=== PATIENT | male | born 1950 | race Caucasian/White ===

== ENCOUNTER → 2020-08-03 | Outpatient (CLI) | payer MEDICARE, OTHER ==
--- NOTE | 2020-08-03 13:58 | REP ---
INDICATION: PAIN IN LEFT SHOULDER COMPARISON: None. TECHNIQUE: Three views left shoulder. FINDINGS: There is no evidence of acute fracture, dislocation, or intrinsic bone disease.There is minor narrowing of the acromioclavicular and glenohumeral joints. IMPRESSION: No fracture or dislocation. Minor joint space narrowing acromioclavicular and glenohumeral joints. <Electronically signed by Michael Campuzano > 08/03/20 [id number]
== END ==
LOC: M LAB 13:43
PROVIDERS: ATTEND Family Medicine
DX: M25.512 Pain in left shoulder (principal)

== ENCOUNTER → 2020-08-18 | Outpatient (CLI) | payer MEDICARE, OTHER ==
--- NOTE | 2020-08-18 16:29 | REP ---
INDICATION: LT SHOULDER PAIN DECREASED ROM. COMPARISON: Radiographs 08/03/2020. TECHNIQUE: Coronal oblique T1, T2 fat sat, sagittal oblique T2 fat sat, axial T2 fat sat, gradient echo. FINDINGS: Rotator cuff: There is a partial undersurface tear of the supraspinatus tendon. There is mild tendinopathy/tendinitis of the subscapularis tendon. Acromioclavicular joint: There are mild hypertrophic changes at the acromioclavicular joint. Acromion: Type 1. Biceps Tendon: In bicipital groove, there is mild fluid surrounding the biceps tendon which may represent mild tenosynovitis.. Hill Sach's deformity: None. Deltoid muscle: No abnormal signal. Biceps labral complex: There is a tear at the base of the biceps labral complex. Labrum: The entire labrum is torn, superiorly, inferiorly, anteriorly and posteriorly. Cartilage: There is moderate chondromalacia at the glenohumeral joint. Bone marrow: No abnormal signal. Joint fluid: There is a small joint effusion. IMPRESSION: Partial undersurface tear supraspinatus tendon. Mild tendinopathy/tendinitis of the subscapularis tendon. Mild hypertrophic degenerative changes acromioclavicular joint. There is a tear at the base of the biceps labral complex. The entire labrum appears torn. Small joint effusion. <Electronically signed by Michael Campuzano > 08/18/20 [id number]
== END ==
LOC: M RAD 13:09
PROVIDERS: ATTEND Nurse Practitioner Family
DX: M25.612 Stiffness of left shoulder, not elsewhere classified (principal); M25.461 Effusion, right knee; M75.112 Incomplete rotator cuff tear or rupture of left shoulder, not specified as traumatic

== ENCOUNTER → 2020-10-30 | Outpatient (CLI) | payer MEDICARE, OTHER | LOC: M LABSMTC 11:02 | PROVIDERS: ATTEND Ophthalmology | DX: Z01.812 Encounter for preprocedural laboratory examination (principal); Z20.822 Contact with and (suspected) exposure to COVID-19 ==

== ENCOUNTER → 2020-11-10 | Outpatient (CLI) | payer MEDICARE, OTHER | LOC: M LABSMTC 10:04 | PROVIDERS: ATTEND Ophthalmology | DX: Z01.812 Encounter for preprocedural laboratory examination (principal); Z20.822 Contact with and (suspected) exposure to COVID-19 ==

== ENCOUNTER → 2021-07-22 | Outpatient (CLI) | payer MEDICARE, OTHER | LOC: M RAD 09:32 | PROVIDERS: ATTEND Family Medicine | DX: R05.9 Cough, unspecified (principal) ==

== ENCOUNTER → 2022-01-26 | Outpatient (CLI) | payer MEDICARE, OTHER ==
[2022-01-26 12:44] LABS: BASO # 0.1 10^3/uL (0.0-0.2); BASO % 0.8 % (0.0-1.0); EOS # 0.2 10^3/uL (0.0-0.5); EOS % 3.8 % (0.0-3.0); HEMOGLOBIN 15.8 g/dl (13.5-17.5); LYMPH % 30.7 % (24.0-44.0); MEAN CORPUSCULAR HEMOGLOBIN 29.8 pg (27.0-33.0); MEAN CORPUSCULAR HGB CONC 31.6 g/dl (32.0-36.5); MEAN CORPUSCULAR VOLUME 94.2 fl (80.0-96.0); MONO # 0.8 10^3/uL (0.0-0.8); MONO % 12.8 % (2.0-8.0); NEUTROPHILS # 3.3 10^3/uL (1.5-8.5); NEUTROPHILS % 51.6 % (36.0-66.0); PLATELET COUNT, AUTOMATED 207 10^3/uL (150-450); RED BLOOD COUNT 5.31 10^6/uL (4.30-6.10); WHITE BLOOD COUNT 6.4 10^3/uL (4.0-10.0)
[2022-01-26 13:08] LABS: THYROID STIMULATING HORMONE 1.509 uIU/ML (0.55-4.78)
[2022-01-26 13:09] LABS: ALBUMIN 3.8 G/DL (3.2-5.2); ALKALINE PHOSPHATASE 52 U/L (46-116); ALT/SGPT 18 U/L (7.0-40); AST/SGOT 21 U/L (<34); BILIRUBIN,TOTAL 0.7 MG/DL (0.3-1.2); BLOOD UREA NITROGEN 19 MG/DL (9-23); CALCIUM LEVEL 9.7 MG/DL (8.3-10.6); CARBON DIOXIDE LEVEL 28 MMOL/L (20-31); CHLORIDE LEVEL 102 MMOL/L (98-107); CHOLESTEROL LEVEL 184 MG/DL (<200); CHOLESTEROL RISK RATIO 2.42 (<5); CREATININE FOR GFR 1.19 MG/DL (0.70-1.30); GLOMERULAR FILTRATION RATE > 60.0 (>42); GLUCOSE, FASTING 102 MG/DL (74-106); LDL CHOLESTEROL 82.4 MG/DL (<100); NON-HDL-C 108 MG/DL; POTASSIUM SERUM 4.7 MMOL/L (3.5-5.1); SODIUM LEVEL 140 MMOL/L (136-145); TOTAL PROTEIN 6.7 G/DL (5.7-8.2); TRIGLYCERIDES LEVEL 128 MG/DL (<150)
== END ==
LOC: M WUC 10:08
PROVIDERS: ATTEND Family Medicine
DX: E78.5 Hyperlipidemia, unspecified (principal); E03.9 Hypothyroidism, unspecified; K21.9 Gastro-esophageal reflux disease without esophagitis

== ENCOUNTER → 2024-01-24 | Outpatient (CLI) | payer MEDICARE, OTHER ==
[2024-01-24 16:21] LABS: BASO % 0.6 % (0.0-1.0); EOS # 0.4 10^3/uL (0.0-0.5); EOS % 5.9 % (0.0-3.0); HEMATOCRIT 46.9 % (42.0-52.0); HEMOGLOBIN 15.6 g/dl (13.5-17.5); LYMPH # 1.6 10^3/uL (1.5-5.0); LYMPH % 23.9 % (24.0-44.0); MEAN CORPUSCULAR HEMOGLOBIN 31.3 pg (27.0-33.0); MEAN CORPUSCULAR HGB CONC 33.3 g/dl (32.0-36.5); MEAN CORPUSCULAR VOLUME 94.2 fl (80.0-96.0); MONO # 0.9 10^3/uL (0.0-0.8); MONO % 13.5 % (2.0-8.0); NEUTROPHILS # 3.8 10^3/uL (1.5-8.5); NEUTROPHILS % 55.8 % (36.0-66.0); PLATELET COUNT, AUTOMATED 236 10^3/uL (150-450); RED BLOOD COUNT 4.98 10^6/uL (4.30-6.10); WHITE BLOOD COUNT 6.8 10^3/uL (4.0-10.0)
[2024-01-24 16:51] LABS: ALBUMIN 3.8 G/DL (3.2-5.2); ALKALINE PHOSPHATASE 66 U/L (40-129); ALT/SGPT 23 U/L (7.0-40); AST/SGOT 20 U/L (<34); BILIRUBIN,TOTAL 0.5 MG/DL (0.3-1.2); BLOOD UREA NITROGEN 19 MG/DL (9-23); CALCIUM LEVEL 10.8 MG/DL (8.3-10.6); CARBON DIOXIDE LEVEL 35 MMOL/L (20-31); CHLORIDE LEVEL 105 MMOL/L (98-107); CHOLESTEROL LEVEL 178 MG/DL (<200); CHOLESTEROL RISK RATIO 2.34 (<5); CREATININE FOR GFR 1.17 MG/DL (0.70-1.30); GLOMERULAR FILTRATION RATE > 60.0 (>42); GLUCOSE, FASTING 81 MG/DL (74-106); HDL CHOLESTEROL 75.8 MG/DL (>40); LDL CHOLESTEROL 65.8 MG/DL (<100); NON-HDL-C 102.2 MG/DL; POTASSIUM SERUM 4.4 MMOL/L (3.5-5.1); SODIUM LEVEL 143 MMOL/L (136-145); TRIGLYCERIDES LEVEL 182 MG/DL (<150)
[2024-01-24 16:53] LABS: THYROID STIMULATING HORMONE 1.494 uIU/ML (0.55-4.78)
== END ==
LOC: M WUC 14:43
PROVIDERS: ATTEND Family Medicine
DX: I20.9 Angina pectoris, unspecified (principal); E03.9 Hypothyroidism, unspecified; E78.5 Hyperlipidemia, unspecified; J44.9 Chronic obstructive pulmonary disease, unspecified

== ENCOUNTER → 2024-06-13 | Outpatient (CLI) | payer MEDICARE, OTHER | LOC: M RAD 07:04 | PROVIDERS: ATTEND Internal Medicine Pulmonary Disease | DX: R06.02 Shortness of breath (principal); J84.10 Pulmonary fibrosis, unspecified; K80.20 Calculus of gallbladder without cholecystitis without obstruction ==

== ENCOUNTER 2024-08-28 09:52 | Day surgery (SDC) | payer MEDICARE, OTHER ==
[~2024-08-28] VITALS: Ht 180.3 cm; Wt 89.0 kg
[~2024-08-28 09:52] MED LIST: ECOT81TA5 PO; ERGO500029 PO; LEVO50TA5 PO; SIMV40TA20 PO; TAMS1CAP17 PO
[2024-08-28] MEDS ORDERED: LIDOCAINE 2% 100 MG/5 ML SDV (FOR ANES.) As Ordered ONE (10:16)
[2024-08-28 11:46] VITALS: TEMP 97.7
[2024-08-28 12:05] VITALS: BP 129/67; O2SAT 94
== END 2024-08-28 12:18 | disposition home or self-care (01) ==
LOC: M OPP 09:52
PROVIDERS: ATTEND Surgery
DX: D12.6 Benign neoplasm of colon, unspecified (principal); K57.30 Diverticulosis of large intestine without perforation or abscess without bleeding; Z86.0100 Personal history of colon polyps, unspecified; K22.70 Barrett's esophagus without dysplasia; K29.70 Gastritis, unspecified, without bleeding; K30 Functional dyspepsia; Z79.82 Long term (current) use of aspirin; Z79.899 Other long term (current) drug therapy; J44.9 Chronic obstructive pulmonary disease, unspecified; Z87.891 Personal history of nicotine dependence
CPT/HCPCS: 43239; 45385; 88305; J3010

== ENCOUNTER → 2024-09-03 | Outpatient (CLI) | payer MEDICARE, OTHER | LOC: M LAB 14:26 | PROVIDERS: ATTEND Surgery | DX: K62.5 Hemorrhage of anus and rectum (principal) ==